=== PATIENT | female | born 1980 | race African-American/Black ===

== ENCOUNTER 2018-10-28 11:26 | Emergency (ER) | payer BC, MEDICAID ==
[2018-10-28] MEDS ORDERED: NORMAL SALINE 1000 ML 1,000 ML IV ONE (11:36)
[2018-10-28] MEDS ORDERED: KETOROLAC TROMETHAMINE INJ/PF 30 MG/1 ML SDV IV ONE (11:36)
--- NOTE | 2018-10-28 11:38 | ER Document Report ---
ED Medical Screen (RME) - General Chief Complaint: Flank Pain Stated Complaint: FLANK PAIN Time Seen by Provider: 10/28/18 11:30 Primary Care Provider: ASA WOLF DO [Primary Care Provider] - Follow up as needed Mode of Arrival: Ambulatory Information source: Patient Notes: 38-year-old female presented to ED for complaint of right flank pain started yesterday. She states is much worse today. She states she does have a history of kidney stones last one was about 6 years ago. She states she has only had a tubal ligation is the only surgery she had. She does smoke a pack a day and drinks a couple times on the weekends does not do any illicit drugs. States she works at the [employer]. Patient is alert oriented respirations regular and unlabored speaking in full sentences walks with a even steady gait. I have greeted and performed a rapid initial assessment of this patient. A comprehensive ED assessment and evaluation of the patient, analysis of test results and completion of medical decision making process will be conducted by an additional ED providers. TRAVEL OUTSIDE OF THE [place] IN LAST 30 DAYS: No - Related Data Allergies/Adverse Reactions: No Known Allergies Allergy (Verified 10/28/18 11:27) Physical Exam - Vital signs Vitals: Temp Pulse Resp BP Pulse Ox 98.1 F 102 H 18 151/101 H 100 10/28/18 11:30 10/28/18 11:30 10/28/18 11:30 10/28/18 11:30 10/28/18 11:30 Course - Vital Signs Vital signs: Temp Pulse Resp BP Pulse Ox 98.1 F 102 H 18 151/101 H 100 10/28/18 11:30 10/28/18 11:30 10/28/18 11:30 10/28/18 11:30 10/28/18 11:30 Doctor's Discharge - Discharge Referrals: ASA WOLF DO [Primary Care Provider] - Follow up as needed
[2018-10-28 11:50] LABS: ABSOLUTE BASOPHILS # (AUTO) 0.1 10^3/uL (0.0-0.2); ABSOLUTE EOSINOPHILS # (AUTO) 0.1 10^3/uL (0.0-0.6); ABSOLUTE LYMPHOCYTES (AUTO) 1.2 10^3/uL (0.5-4.7); ABSOLUTE MONOCYTES (AUTO) 0.9 10^3/uL (0.1-1.4); ABSOLUTE NEUT (AUTO) 9.4 10^3/uL (1.7-8.2); BASOPHILS % (AUTO) 1.2 % (0-2); EOSINOPHILS % (AUTO) 0.9 % (0-6); HEMATOCRIT 37.9 % (36.0-47.0); HEMOGLOBIN 12.4 g/dL (12.0-15.5); LYMPHOCYTES % (AUTO) 10.5 % (13-45); MEAN CORPUSCULAR HEMOGLOBIN 24.8 pg (27.0-33.4); MEAN CORPUSCULAR HGB CONC 32.7 g/dL (32.0-36.0); MEAN CORPUSCULAR VOLUME 76 fl (80-97); MONOCYTES % (AUTO) 7.8 % (3-13); PLATELET COUNT 366 10^3/uL (150-450); RED CELL DISTRIBUTION WIDTH 18.9 % (11.5-14.0); SEGMENTED NEUTROPHILS % (AUTO) 79.6 % (42-78); TOTAL CELLS COUNTED % (AUTO) 100 %; WHITE BLOOD COUNT 11.8 10^3/uL (4.0-10.5)
[2018-10-28 11:54] LABS: APPEARANCE,URINE CLEAR; BILIRUBIN,URINE NEGATIVE (NEGATIVE); GLUCOSE, URINE NEGATIVE (NEGATIVE); KETONES,URINE NEGATIVE (NEGATIVE); LEUKOCYTE ESTERASE,URINE NEGATIVE (NEGATIVE); NITRITE,URINE POSITIVE (NEGATIVE); PROTEIN,URINE 100 mg/dL (NEGATIVE); URINE SPECIFIC GRAVITY 1.029
[2018-10-28 11:55] LABS: COLOR,URINE ORANGE
--- NOTE | 2018-10-28 12:03 | ER Document Report ---
Entered by KILLIAN HARRISON SCRIBE 10/28/18 1142 Acting as scribe for:MANAS MINER MD ED GI/ - General Chief Complaint: Flank Pain Stated Complaint: FLANK PAIN Time Seen by Provider: 10/28/18 11:30 Primary Care Provider: ASA WOLF DO [Primary Care Provider] - Follow up as needed Mode of Arrival: Ambulatory Information source: Patient Notes: 38-year-old female with kidney stones that presents to the emergency department today with complaints of right-sided flank pain which began last night. Patient also complains of some suprapubic abdominal pain. Patient states her symptoms today are similar to her previous kidney stones. Patient states she is now currently pain-free. Patient denies any dysuria. TRAVEL OUTSIDE OF THE [place] IN LAST 30 DAYS: No - Related Data Allergies/Adverse Reactions: No Known Allergies Allergy (Verified 10/28/18 11:27) Past Medical History - General Information source: Patient - Social History Smoking Status: Current Every Day Smoker Cigarette use (# per day): Yes - 1 ppd Frequency of alcohol use: Social Drug Abuse: None Occupation: [employer] Lives with: Family Family History: Reviewed & Not Pertinent Renal/ Medical History: Reports: Hx Kidney Stones Review of Systems - Review of Systems Constitutional: No symptoms reported EENT: No symptoms reported Cardiovascular: No symptoms reported Respiratory: No symptoms reported Gastrointestinal: See HPI, Abdominal pain Genitourinary: See HPI, Flank pain - right. denies: Dysuria Female Genitourinary: No symptoms reported Musculoskeletal: No symptoms reported Skin: No symptoms reported Hematologic/Lymphatic: No symptoms reported Neurological/Psychological: No symptoms reported -: Yes All other systems reviewed and negative Physical Exam - Vital signs Vitals: Temp Pulse Resp BP Pulse Ox 98.1 F 102 H 18 151/101 H 100 10/28/18 11:30 10/28/18 11:30 10/28/18 11:30 10/28/18 11:30 10/28/18 11:30 - Notes Notes: Physical Exam: General: Alert, appears well. HEENT: Normocephalic. Atraumatic. PERRL. Extraocular movements intact. Oropharynx clear. Neck: Supple. Non-tender. Respiratory: No respiratory distress. Clear and equal breath sounds bilaterally. Cardiovascular: Regular rate and rhythm. Abdominal: Normal Inspection. Non-tender. No distension. Normal Bowel Sounds. Back: Right CVA tenderness to percussion. Extremities: Moves all four extremities. Upper extremities: Normal inspection. Normal ROM. Lower extremities: Normal inspection. No edema. Normal ROM. Neurological: Normal cognition. AAOx4. Normal speech. Psychological: Normal affect. Normal Mood. Skin: Warm. Dry. Normal color. Course - Vital Signs Vital signs: Temp Pulse Resp BP Pulse Ox 98.1 F 102 H 18 151/101 H 100 10/28/18 11:30 10/28/18 11:30 10/28/18 11:30 10/28/18 11:30 10/28/18 11:30 - Laboratory Result Diagrams: 10/28/18 11:30 10/28/18 11:30 Laboratory results interpreted by me: 10/28/18 10/28/18 11:30 11:34 WBC 11.8 H MCV 76 L MCH 24.8 L RDW 18.9 H Lymph % (Auto) 10.5 L Absolute Neuts (auto) 9.4 H Seg Neutrophils % 79.6 H Urine Protein 100 H Urine Blood LARGE H Urine Nitrite POSITIVE H Urine Urobilinogen 4.0 H - Diagnostic Test Radiology reviewed: Image reviewed, Reports reviewed - CT scan shows a 3 mm stone in the distal right ureter adjacent to the UVJ. There is hydronephrosis hydroureter, mild perinephric stranding. Discharge - Discharge Clinical Impression: Renal colic on right side, Right distal ureteral calculus Condition: Stable Disposition: HOME, SELF-CARE Additional Instructions: Kidney Stone: You are passing a kidney stone. These stones are usually due to increased calcium or uric acid concentrations in your urine. Stones within the kidney itself are not painful. The pain occurs as the stone leaves the kidney to pass down the long tube, called the ureter, leading to the bladder. If the stone is small, it will usually pass by itself. Most patients can pass the stone at home. You will usually receive medications for pain, nausea or vomiting, and sometimes a medication to assist in passing the kidney stone. However, if the pain is very severe or if vomiting prevents you from taking oral pain medications, you may need to return for further treatment. Drink three or four quarts of fluids per day. You will be given pain medication (if needed) and urine strainers. Strain all your urine to see if the stone passes. If your doctor has asked you to bring the stone in for analysis, return with the stone once it has passed. Return if pain or vomiting become severe, if you develop a high fever, if you are unable to pass your urine, or if other unusual symptoms occur. Start taking the Flomax tomorrow. Take ibuprofen 800 mg every 8 hours. Take the pain medication as prescribed if needed. Drink plenty of fluids throughout the day in the evening. Strain your urine. Follow-up with [facility] if not improving. RETURN TO THE EMERGENCY ROOM IF ANY NEW OR WORSENING SYMPTOMS. Prescriptions: Tamsulosin HCl [Flomax 0.4 mg Cap.sr] 0.4 mg PO DAILY #7 cap.sr.24h Oxycodone HCl/Acetaminophen [Percocet 5-325 mg Tablet] 1 tab PO ASDIR PRN #15 tablet PRN Reason: Referrals: [facility] [Provider Group] - Follow up as needed Scribe Attestation: 10/28/18 12:20 I personally performed the services described in the documentation, reviewed and edited the documentation which was dictated to the scribe in my presence, and it accurately records my words and actions. I personally performed the services described in the documentation, reviewed and edited the documentation which was dictated to the scribe in my presence, and it accurately records my words and actions.
--- NOTE | 2018-10-28 12:41 | RADIOLOGY REPORT (SQ) ---
EXAM DESCRIPTION: CT ABD/PELVIS NO ORAL OR IV COMPLETED DATE/TIME: 10/28/2018 12:26 pm REASON FOR STUDY: Right flank pain with hematuria COMPARISON: None. TECHNIQUE: CT scan of the abdomen and pelvis performed without intravenous or oral contrast. Images reviewed with lung, soft tissue, and bone windows. Reconstructed coronal and sagittal MPR images revi ewed. All images stored on PACS. All CT scanners at this facility use dose modulation, iterative reconstruction, and/or weight based d osing when appropriate to reduce radiation dose to as low as reasonably achievable (ALARA). [facility]: Dose Right [facility]: CareDose [facility]: Dose Right [facility]: Teradose 4D [facility]: Smart [employer] RADIATION DOSE: CT Rad equipment meets quality standard of care and radiation dose reduction techniq ues were employed. CTDIvol: 4.2 mGy. DLP: 216 mGy-cm.mGy. LIMITATIONS: None. FINDINGS: LOWER CHEST: No consolidation or pleural effusion. NON-CONTRASTED LIVER, SPLEEN, ADRENALS: Evaluation limited by lack of IV contrast. There is a 2.6 cm fluid attenuation lesion at the right hepatic lobe, may represent a cyst. Additional subcentimeter hypodensities scattered within the liver parenchyma are too small to be adequately characterized. PANCREAS: No peripancreatic inflammatory changes. GALLBLADDER: Present. RIGHT KIDNEY AND URETER: Mild perinephric stranding. There is mild right hydroureteronephrosis. Th ere is a 3 mm calcification at the distal right ureter adjacent to the ureterovesical junction. LEFT KIDNEY AND URETER: Assessment for masses limited by lack of IV contrast. No significant calcif ications. No hydronephrosis or hydroureter. AORTA AND RETROPERITONEUM: No abdominal aortic aneurysm. No retroperitoneal masses or hemorrhage. BOWEL AND PERITONEAL CAVITY: No dilated bowel loops or inflammatory changes. No free fluid. APPENDIX: Normal. PELVIS, BLADDER, AND ABDOMINAL WALL:The uterus is present. No free fluid. Bladder partially distended . BONES: No significant findings. IMPRESSION: Mild right perinephric stranding and mild right hydroureteronephrosis with a 3 mm calcul us at the distal right ureter adjacent to the UVJ. COMMENT: Quality ID # [id number]: Final reports with documentation of one or more dose reduction techniques (e.g., Automated exposure control, adjustment of the mA and/or kV according to patient size, use of iterative reconstruction technique) TECHNICAL DOCUMENTATION: JOB ID: [id number] 2010 [employer]- All Rights Reserved Reading location - IP/workstation name: [email or web address]
[2018-10-28] MEDS ORDERED: TAMSULOSIN HCL 0.4 MG CAP.SR.24H PO ONE (12:50)
[2018-10-28 13:02] LABS: ALBUMIN 4.2 g/dL (3.5-5.0); ALKALINE PHOSPHATASE 79 U/L (38-126); ANION GAP 12 (5-19); ASPARTATE AMINO TRANSFERASE 20 U/L (14-36); BILIRUBIN,TOTAL 0.4 mg/dL (0.2-1.3); BLOOD UREA NITROGEN 7 mg/dL (7-20); CALCIUM 9.2 mg/dL (8.4-10.2); CARBON DIOXIDE 20 mmol/L (22-30); CHLORIDE 107 mmol/L (98-107); GLUCOSE 86 mg/dL (75-110); POTASSIUM 3.8 mmol/L (3.6-5.0); TOTAL PROTEIN 7.1 g/dL (6.3-8.2)
[2018-10-28 13:36] VITALS: BP 127/84
== END 2018-10-28 13:36 | disposition home or self-care (01) ==
LOC: ER 11:26
DX: N20.1 Calculus of ureter (principal); R10.9 Unspecified abdominal pain; R10.30 Lower abdominal pain, unspecified; F17.210 Nicotine dependence, cigarettes, uncomplicated; Z87.442 Personal history of urinary calculi
CPT/HCPCS: 36415; 87086; 84703; 85025; 80053; 81001; 74176; J1885; J7030; 96361; 96374; 99284